=== PATIENT | male | born 1940 | race Caucasian/White ===

== ENCOUNTER 2019-03-05 06:54 | Day surgery (SDC) | payer MEDICARE, OTHER ==
[~2019-03-05 06:54] MED LIST: Lactated Ringers 1,000 ML IV SCH; Lidocaine 1%/Sod Bicarbonate in NS 8.4% 1 ML Syringe IDERM PRN; Sodium Chloride 0.9% 10 ML Syringe FLUSH PRN
--- NOTE | 2019-03-05 07:24 | PCM.PREANE ---
Preanesthetic Assessment - Procedure Proposed Procedure: egd and colonoscopy - Anesthesia/Transfusion/Family Hx Anesthesia History: Prior Anesthesia Without Reaction Family History of Anesthesia Reaction: No Transfusion History: No Prior Transfusion(s) - Review of Systems General: No Symptoms Pulmonary: Shortness of Breath (copd for 30 years), Cough Cardiovascular: No Symptoms Gastrointestinal: No Symptoms Neurological: No Symptoms Other: Reports: Easy Bleeding, Easy Bruising - Physical Assessment NPO Status Date: 03/04/19 NPO Status Time: 23:30 Pulse: 67 O2 Sat by Pulse Oximetry: 98 Respiratory Rate: 16 Blood Pressure: 161/64 Temperature: 98.5 F Height: 6 ft 1 in Weight: 63.957 kg ASA Class: 3 Mental Status: Alert & Oriented x3 Airway Class: Mallampati = 1 Dentition: Reports: Missing Tooth/Teeth Thyro-Mental Finger Breadths: 3 Mouth Opening Finger Breadths: 3 ROM/Head Extension: Full Lungs: Clear to Auscultation, Normal Respiratory Effort, Decreased Breath Sounds Cardiovascular: Regular Rate, Regular Rhythm - Allergies Allergies/Adverse Reactions: Allergies Allergy/AdvReac Type Severity Reaction Status Date / Time [id number] Reductase Allergy Leg Cramps Verified 03/04/19 14:07 Inhibitor - Blood Blood Available: No - Acknowledgements Anesthesia Type Planned: MAC Pt an Appropriate Candidate for the Planned Anesthesia: Yes Alternatives and Risks of Anesthesia Discussed w Pt/Guardian: Yes Pt/Guardian Understands and Agrees with Anesthesia Plan: Yes PreAnesthesia Questionnaire HEENT History: Reports: Impaired Vision Other HEENT History: hearing aids, glasses Cardiovascular History: Reports: CAD, High Cholesterol, Hypertension (denies), PTCA, Stents Other Cardiovascular History: chronic ischemic heart disease, valvular heart disease, mitral valve regurigation, EF of 60-65%,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 Respiratory History: Reports: COPD, SOB, Other (See Below) Other Respiratory History: chronic airway obstruction Gastrointestinal History: Reports: Colon Polyp, Diverticulosis, Hemorrhoids Genitourinary History: Reports: BPH, Prostate Disorder 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 Musculoskeletal History: Reports: Other (See Below) Other Musculoskeletal History: tendeon contracture Neurological History: Reports: None Psychiatric History: Reports: None Endocrine/Metabolic History: Reports: None Hematologic History: Reports: None Immunologic History: Reports: None Oncologic (Cancer) History: Reports: None Dermatologic History: Reports: Other (See Below) Other Dermatologic History: disorder of skin/SQ tissue, actinic keratsosis - Past Surgical History HEENT Surgical History: Reports: Adenoidectomy, Cataract Surgery, Tonsillectomy Other Cardiovascular Surgeries/Procedures: angiogram with stents 1998 Respiratory Surgical History: Reports: None GI Surgical History: Reports: Appendectomy, Colonoscopy Female Surgical History: Reports: None Male Surgical History: Reports: None Endocrine Surgical History: Reports: None Neurological Surgical History: Reports: None Other Musculoskeletal Surgeries/Procedures:: shattered knee cap with surgery, left thumb repair Oncologic Surgical History: Reports: None Dermatological Surgical History: Reports: None - SUBSTANCE USE Smoking Status *Q: Former Smoker (quit 2012) Tobacco Use Within Last Twelve Months: No Second Hand Smoke Exposure: Yes Days Per Week of Alcohol Use: 0 (rare) Recreational Drug Use History: No - HOME MEDS Home Medications: Home Meds Albuterol [Ventolin HFA] 1 puff INH BID PRN 09/04/15 [History] Albuterol/Ipratropium [Combivent Respimat] 1 puff INH QID 09/04/15 [History] Aspirin [Halfprin] 81 mg PO DAILY 09/04/15 [History] Clopidogrel [Plavix] 75 mg PO DAILY 09/04/15 [History] Ezetimibe [Zetia] 10 mg PO DAILY 09/04/15 [History] Fluticasone/Salmeterol [Advair Diskus 250-50] 1 puff INH BID 09/04/15 [History] Lisinopril [Prinivil] 20 mg PO DAILY 09/04/15 [History] Naproxen Sodium [Aleve] 220 mg PO DAILY PRN 09/04/15 [History] Simvastatin [Zocor] 40 mg PO BEDTIME 09/04/15 [History] Tamsulosin [Flomax] 0.4 mg PO DAILY 03/04/19 [History] - CURRENT (IN HOUSE) MEDS Current Meds: Current Medications Albuterol (Proventil Neb Soln) 2.5 mg NEB ONETIME ONE Stop: 03/05/19 07:51 Lactated Ringer's (Ringers, Lactated) 1,000 mls @ 125 mls/hr IV ASDIRECTED IAN Stop: 03/05/19 23:00 Lidocaine/Sodium Bicarbonate (Buffered Lidocaine 1% In Ns 8.4%) 0.25 ml IDERM ONETIME PRN PRN Reason: Prior to IV Start Stop: 03/05/19 18:00 Sodium Chloride (Saline Flush) 10 ml FLUSH ASDIRECTED PRN PRN Reason: Keep Vein Open Stop: 03/05/19 18:00
[2019-03-05] MEDS ORDERED: Lidocaine 1% 4 ML ONE (07:33)
[2019-03-05] MEDS ORDERED: fentaNYL 100 MCG/2 ML SDV ONE (07:33)
[2019-03-05] MEDS ORDERED: Propofol 200 MG/20 ML SDV ONE (07:33)
[2019-03-05] MEDS ORDERED: Albuterol 0.083% 2.5 MG/3 ML Neb Soln NEB ONE (07:50)
[2019-03-05] MEDS ORDERED: ePHEDrine/Normal Saline 25 MG/5 ML Syringe ONE (08:28)
--- NOTE | 2019-03-05 09:07 | PCM.OPNOTE ---
- General Post-Op/Procedure Note Date of Surgery/Procedure: 03/05/19 Operative Procedure(s): EGD and colonoscopy Findings: 1. Esophagitis in distal esophagus 2. Gastritis with superficial patchy and linear erosion 3. Duodenitis 4. Cecal polyps x2 5. Transverse colon polyp 6. Diverticulosis Pre Op Diagnosis: Anemia and history of colon polyps Post-Op Diagnosis: same Anesthesia Technique: MAC Primary Surgeon: Ebony Romo Anesthesia Provider: Preet Dunbar Pathology: 1. Duodenal biopsy 2. Gastric antrum for H. pylori 3. Distal esophagus Biopsy 4. Cecal polyp 5. Large sessile cecal polyp 6. Transverse colon polyp Fluid Replacement, Intraop: 700 Output, Urine Amount: 0 EBL in mLs: 0 Complications: None apparent Condition: Good
--- NOTE | 2019-03-05 09:13 | PCM48HPAN ---
Post Anesthesia Note - EVALUATION WITHIN 48HRS OF ANESTHETIC Vital Signs in Normal Range: Yes Patient Participated in Evaluation: Yes Respiratory Function Stable: Yes Airway Patent: Yes Cardiovascular Function Stable: Yes Hydration Status Stable: Yes Pain Control Satisfactory: Yes Nausea and Vomiting Control Satisfactory: Yes Mental Status Recovered: Yes Pulse Rate: 65 SaO2: 94 Resp Rate: 16 Temperature: 97.6 F Blood Pressure: 128/55
--- NOTE | 2019-03-05 09:14 | PCM.PRNOTE ---
- Free Text/Narrative Note: Operative Report Date of Procedure: March 05, 2019 Pre Op Diagnosis: Anemia and history of colon polyps Post-Op Diagnosis: Same Operative Procedures: 1. EGD with biopsy 2. Colonoscopy to the cecum Primary Surgeon: Ebony Romo MD Anesthesia Provider: Preet Dunbar CRNA Anesthesia Technique: MAC IV Fluid Replacement, Intraop: 700cc crystalloid Output, Urine Amount: 0cc EBL in mLs: 0cc Findings: 1. Esophagitis in distal esophagus 2. Gastritis with superficial patchy and linear erosion 3. Duodenitis 4. Cecal polyps x2 5. Transverse colon polyp 6. Diverticulosis Specimens: 1. Duodenal biopsy 2. Gastric antrum for H. pylori 3. Distal esophagus Biopsy 4. Cecal polyp 5. Large sessile cecal polyp 6. Transverse colon polyp Drain/Tubes: None Indication: The patient is a 78-year-old gentleman who presented to the clinic with laboratory findings of anemia. The patient does have a history of colon polyps from a colonoscopy in the past, but was not due for a surveillance colonoscopy yet at this interval. He wished to proceed with diagnostic evaluation for the anemia. The patient was consented for a diagnostic EGD and colonoscopy. Risks of bleeding, and perforation were discussed, and the patient agreed to the risks and wished to proceed. Description of the procedure: The patient was taken back to the endoscopy suite, and placed in the left lateral decubitus position. Local anesthetic to the oropharynx was administered , and a bite block was placed. The patient was sedated with MAC anesthesia. The Olympus video endoscope was inserted into the oropharynx and guided under direct vision into the esophagus, stomach, and duodenum. There was duodenitis identified in the bulb of the duodenum. Cold biopsy forceps were used to take a tissue sample for pathology. The gastric antrum was inspected and cold biopsy forceps were used to take tissue samples for H. pylori and pathology. The scope was withdrawn to the stomach and retroflexed. There were multiple areas of patchy erythema and linear erythema with superficial erosion noted in the body of the stomach and antrum. The scope was withdrawn to the esophagus. A this point we did not see any hiatal hernia. The Z-line and gastroesophageal junction were located at about 41 cm. No Barretts esophagus changes were noted. There was esophagitis with linear erosions noted in the distal esophagus. Biopsies were taken for pathology using cold biopsy forceps The endoscope was then withdrawn Next, anorectal examination was performed. No lesions, masses or hemorrhoids were noted externally or on palpation. The scope was placed into the rectum and advanced to cecum. Upon reaching the cecum, and the patients cecum was entered. There was . Minimal tortuosity of the colon. The ileocecal valve was well visualized and the appendiceal orifice identified. There was a 2 mm sessile polyp found in the cecum. This is removed using cold biopsy forceps. An additional 8-9 mm sessile polyp was seen in the cecum. This was removed in a piecemeal fashion using jumbo biopsy forceps. At this point, the scope was slowly withdrawn, paying attention to the mucosa. The patient had good bowel prep, 85-90 % of the mucosa was visible. . A transverse colon polyp was noted, measuring approximately 3 mm and semi-sessile. This was removed using jumbo cold biopsy forceps. There were a few diverticula scattered in the descending and sigmoid colon without evidence of inflammation. In the rectum, scope was retroflexed and some hemorrhoidal tissue was noted. The scope was placed back in the lumen and excess air was aspirated. The scope was removed. The patient tolerated the procedure very well. Complications: None apparent Condition: The patient was transported to PACU in stable condition. Ebony Romo MD General Surgery
[2019-03-05 09:57] VITALS: BP 135/47
== END 2019-03-05 09:51 | disposition home or self-care (01) ==
LOC: JD.SDS 06:54
PROVIDERS: ATTEND Surgery
DX: D12.0 Benign neoplasm of cecum (principal); D12.3 Benign neoplasm of transverse colon; K63.5 Polyp of colon; K57.30 Diverticulosis of large intestine without perforation or abscess without bleeding; K64.8 Other hemorrhoids; K63.89 Other specified diseases of intestine; K29.80 Duodenitis without bleeding; K22.10 Ulcer of esophagus without bleeding; K29.70 Gastritis, unspecified, without bleeding; K25.9 Gastric ulcer, unspecified as acute or chronic, without hemorrhage or perforation; K31.89 Other diseases of stomach and duodenum; D64.9 Anemia, unspecified; I25.10 Atherosclerotic heart disease of native coronary artery without angina pectoris; I10 Essential (primary) hypertension; I25.9 Chronic ischemic heart disease, unspecified; E78.2 Mixed hyperlipidemia; J44.9 Chronic obstructive pulmonary disease, unspecified; Z88.8 Allergy status to other drugs, medicaments and biological substances; Z95.5 Presence of coronary angioplasty implant and graft; Z87.891 Personal history of nicotine dependence; Z86.010 Personal history of colon polyps; Z79.82 Long term (current) use of aspirin; Z79.02 Long term (current) use of antithrombotics/antiplatelets; Z79.51 Long term (current) use of inhaled steroids; Z79.899 Other long term (current) drug therapy
CPT/HCPCS: 43239; 45380; 94640; J2001; J2704; J3010; J7050; J7120; 00813

== ENCOUNTER 2020-08-21 10:22 | Day surgery (SDC) | payer MEDICARE, OTHER ==
[~2020-08-21 10:22] MED LIST changes: +FLU Vacc QV2020-21(65YR UP)/PF 240 MCG/0.7 ML Syringe IM ONE; -Lactated Ringers 1,000 ML IV SCH
[2020-08-21] MEDS: Lactated Ringers 1,000 ML IV SCH ×2 (10:40→14:57)
--- NOTE | 2020-08-21 10:49 | PCM.PREANE ---
Preanesthetic Assessment - Procedure Proposed Procedure: egd and colonoscopy - Anesthesia/Transfusion/Family Hx Anesthesia History: Prior Anesthesia Without Reaction Family History of Anesthesia Reaction: No Transfusion History: No Prior Transfusion(s) - Review of Systems General: No Symptoms Pulmonary: Cough (copd) Cardiovascular: Dyspnea on Exertion Gastrointestinal: No Symptoms Neurological: No Symptoms Other: Reports: None - Physical Assessment NPO Status Date: 08/20/20 NPO Status Time: 20:30 (pills this am with sip) Vital Signs: 159/68 43 99% 97.0 16 Height: 6 ft 2 in Weight: 62.5 kg ASA Class: 3 Mental Status: Alert & Oriented x3 Dentition: Reports: Normal Dentition Thyro-Mental Finger Breadths: 3 Mouth Opening Finger Breadths: 3 ROM/Head Extension: Full Lungs: Clear to Auscultation, Normal Respiratory Effort Cardiovascular: Regular Rate, Regular Rhythm - Allergies Allergies/Adverse Reactions: Allergies Allergy/AdvReac Type Severity Reaction Status Date / Time [id number]-[id number]-Xfa Reductase Allergy Leg Cramps Verified 08/18/20 12:19 Inhibitor - Blood Blood Available: No - Acknowledgements Anesthesia Type Planned: MAC Pt an Appropriate Candidate for the Planned Anesthesia: Yes Alternatives and Risks of Anesthesia Discussed w Pt/Guardian: Yes Pt/Guardian Understands and Agrees with Anesthesia Plan: Yes PreAnesthesia Questionnaire HEENT History: Reports: Impaired Vision Other HEENT History: hearing aids, glasses Cardiovascular History: Reports: CAD, High Cholesterol, Hypertension (denies), PTCA, Stents Other Cardiovascular History: chronic ischemic heart disease, valvular heart disease, mitral valve regurigation, EF of 60-65%,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 Respiratory History: Reports: COPD, SOB, Other (See Below) Other Respiratory History: chronic airway obstruction Gastrointestinal History: Reports: Colon Polyp, Diverticulosis, GERD, Hemorrhoids Genitourinary History: Reports: BPH, Prostate Disorder 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 Musculoskeletal History: Reports: Other (See Below) Other Musculoskeletal History: tendeon contracture Neurological History: Reports: None Psychiatric History: Reports: None Endocrine/Metabolic History: Reports: None Hematologic History: Reports: None, Other (See Below) (anemia) Immunologic History: Reports: None Oncologic (Cancer) History: Reports: None Dermatologic History: Reports: Other (See Below) Other Dermatologic History: disorder of skin/SQ tissue, actinic keratsosis - Past Surgical History HEENT Surgical History: Reports: Adenoidectomy, Cataract Surgery, Tonsillectomy Other Cardiovascular Surgeries/Procedures: angiogram with stents 1998 Respiratory Surgical History: Reports: None GI Surgical History: Reports: Appendectomy, Colonoscopy Female Surgical History: Reports: None Male Surgical History: Reports: None Endocrine Surgical History: Reports: None Neurological Surgical History: Reports: None Other Musculoskeletal Surgeries/Procedures:: shattered knee cap with surgery, left thumb repair Oncologic Surgical History: Reports: None Dermatological Surgical History: Reports: None - SUBSTANCE USE Smoking Status *Q: Former Smoker (quit 30 years ago) Tobacco Use Within Last Twelve Months: No Second Hand Smoke Exposure: Yes Days Per Week of Alcohol Use: 0 Recreational Drug Use History: No - HOME MEDS Home Medications: Home Meds Albuterol [Ventolin HFA] 1 puff INH BID PRN 09/04/15 [History] Albuterol/Ipratropium [Combivent Respimat] 1 puff INH QID 09/04/15 [History] Aspirin [Halfprin] 81 mg PO DAILY 09/04/15 [History] Clopidogrel [Plavix] 75 mg PO DAILY 09/04/15 [History] Ezetimibe [Zetia] 10 mg PO DAILY 09/04/15 [History] Fluticasone/Salmeterol [Advair Diskus 250-50] 1 puff INH BID 09/04/15 [History] Lisinopril [Prinivil] 20 mg PO DAILY 09/04/15 [History] Simvastatin [Zocor] 40 mg PO BEDTIME 09/04/15 [History] Tamsulosin [Flomax] 0.4 mg PO DAILY 03/04/19 [History] Famotidine [Pepcid] 20 mg PO BID 08/18/20 [History] Fluticasone Propionate [Flonase] 1 dose NASBOTH BID 08/18/20 [History] Iron Ag,Ps/C/Fa6/B12/Zn/SA/Sto [Niferex Tablet] 1 tab PO DAILY 08/18/20 [History] Pantoprazole Sodium [Protonix] 40 mg PO DAILY 08/18/20 [History] - CURRENT (IN HOUSE) MEDS Current Meds: Current Medications Lactated Ringer's (Ringers, Lactated) 1,000 mls @ 125 mls/hr IV ASDIRECTED IAN Stop: 08/21/20 23:00 Lidocaine/Sodium Bicarbonate (Buffered Lidocaine 1% In Ns 8.4%) 0.25 ml IDERM ONETIME PRN PRN Reason: Prior to IV Start Stop: 08/21/20 18:00 Sodium Chloride (Saline Flush) 10 ml FLUSH ASDIRECTED PRN PRN Reason: Keep Vein Open Stop: 08/21/20 18:00 Discontinued Medications Influenza Virus Vaccine (Fluzone High-Dose Quad ) 240 mcg IM .ONCE ONE Stop: 08/21/20 06:01
[2020-08-21] MEDS ORDERED: Albuterol 0.083% 2.5 MG/3 ML Neb Soln NEB ONE (10:50)
[2020-08-21] MEDS ORDERED: Propofol 200 MG/20 ML SDV ONE ×2 (11:16→12:46)
[2020-08-21] MEDS ORDERED: Lidocaine 1% 4 ML ONE (11:16)
[2020-08-21] MEDS ORDERED: Lactated Ringers 1,000 ML ONE (12:48)
[2020-08-21 13:44] VITALS: BP 134/52; PULSE 50
--- NOTE | 2020-08-21 14:02 | PCM48HPAN ---
Post Anesthesia Note - EVALUATION WITHIN 48HRS OF ANESTHETIC Vital Signs in Normal Range: Yes Patient Participated in Evaluation: Yes Respiratory Function Stable: Yes Airway Patent: Yes Cardiovascular Function Stable: Yes Hydration Status Stable: Yes Pain Control Satisfactory: Yes Nausea and Vomiting Control Satisfactory: Yes Mental Status Recovered: Yes Vital Signs: Last Vital Signs Temp 36.4 C 08/21/20 13:14 Pulse 50 L 08/21/20 13:43 Resp 16 08/21/20 13:43 BP 134/52 L 08/21/20 13:43 Pulse Ox 99 08/21/20 13:43
--- NOTE | 2020-08-21 14:21 | PROC ---
DATE OF OPERATION: 08/21/2020 SURGEON: Tony Arroyo MD PREOPERATIVE DIAGNOSIS: Anemia. POSTOPERATIVE DIAGNOSIS: Anemia. PROCEDURES: 1. Esophagogastroduodenoscopy. 2. Colonoscopy. ESTIMATED BLOOD LOSS: Minimal. ANESTHESIA: Monitored anesthesia care. COMPLICATION: None. INDICATIONS AND CONSENT: Mr. Diana is an 80-year-old male, who has iron-deficiency anemia that was recognized last year. The patient underwent EGD, colonoscopy at that time. Gastritis and duodenitis were noted as well as colonic polyps. The patient was treated with transfusions and PPIs, improved, but then the anemia has recurred, came to me for evaluation. I discussed with him. I recommended repeat EGD and colonoscopy to diagnose. We discussed risks, benefits, and alternatives, and informed consent was obtained. DESCRIPTION OF PROCEDURE: The patient was taken to the procedure room, placed in left lateral decubitus position, and then time-out was performed and monitored anesthesia care was induced. Began with the EGD. Scope was inserted into the mouth and taken all the way to the second portion of duodenum. There was a small area of superficial ulceration in the first portion of duodenum. This was a small area. Photographs were taken and biopsies were taken with cold forceps. The bulb, otherwise, and second portion of duodenum were normal. The antrum had mild gastritis. Biopsies were taken here again for pathologic examination. The rest of the body of the stomach as well as the cardia were normal. On retroflexion, there was no hiatal hernia. The rest of the esophagus was also normal. At this point, the stomach was suctioned of any blood and the scope was removed. Next, we proceeded with colonoscopy. Perianal exam and digital rectal exams were normal. Scope was inserted and the prep was good. The exam was challenging due to significant looping, requiring abdominal pressure. Then, the scope was advanced all the way to the cecum into the terminal ileum. Terminal ileum, cecal valve, as well as appendiceal orifice were photographed. Then, the colon was examined all the way to the rectum. There was no polyps or other sources of bleeding. On retroflexion, the rectum was normal. At this point, air was suctioned out from the colon and the exam was concluded. In short, this exam revealed a small superficial ulceration in the first part of the duodenum, minimal gastritis. This too may be causing very minimal bleeding, especially in the context of dual anti-platelet therapy. However, there was no finding that explain major bleeding in this patient. I recommend the patient follow up with Dr. Hidalgo for further management. The patient should continue to abstain from lifestyle factors that contribute to gastritis. The patient should also continue with PPIs for at least another 3 months. These recommendations were discussed with the patient's . RUTH /[id number] ANAND
--- NOTE | 2020-08-24 16:50 | PCM.SN.2 ---
- Free Text/Narrative Note: This is an Addendum to the Procedure Note done on 08/21/2020 There were numerous whitish patches in the mid to distal esophagus therefore a mid esophageal biopsy was takes with cold forceps.
== END 2020-08-21 14:20 | disposition home or self-care (01) ==
LOC: JD.SDS 10:22
PROVIDERS: ATTEND Surgery
DX: D50.9 Iron deficiency anemia, unspecified (principal); K29.50 Unspecified chronic gastritis without bleeding; K26.9 Duodenal ulcer, unspecified as acute or chronic, without hemorrhage or perforation; K22.8 Other specified diseases of esophagus; I10 Essential (primary) hypertension; E78.00 Pure hypercholesterolemia, unspecified; Z23 Encounter for immunization; K21.9 Gastro-esophageal reflux disease without esophagitis; J44.9 Chronic obstructive pulmonary disease, unspecified; Z98.890 Other specified postprocedural states; Z79.899 Other long term (current) drug therapy; Z87.891 Personal history of nicotine dependence; Z88.8 Allergy status to other drugs, medicaments and biological substances
CPT/HCPCS: 00813; 90662; G0008; J2001; J2704; J7120

== ENCOUNTER 2020-12-29 10:02 | Emergency (ER) | payer MEDICARE, OTHER ==
[2020-12-29 10:13] VITALS: BP 155/72; PULSE 50
--- NOTE | 2020-12-29 10:35 | EDM.PDOC ---
ED HPI GENERAL MEDICAL PROBLEM - General Chief Complaint: Cardiovascular Problem Stated Complaint: HIGH BP/LOW HEART RATE Time Seen by Provider: 12/29/20 10:07 Source of Information: Reports: Patient, Family History Limitations: Reports: No Limitations - History of Present Illness INITIAL COMMENTS - FREE TEXT/NARRATIVE: The patient presents with hypertension and bradycardia. He had a 4 vessel CABG in October and he is doing cardiac rehab. He went today and they noticed his heart rate was low in the 30s and his BP was high. He was 182 systolic. He has no chest pain or shortness of breath. He has no fever, chills, cough, congestion or runny nose. He has no abdominal pain, nausea or vomiting. His service engineer is Dr Nicole at [facility] in [place]. He says the low heart rate is normal for him. He is usually in the 30s and 40s. His BP is also elevated at times and when he settle down it goes down. Onset: Gradual Severity: Mild Improves with: Reports: None Worsens with: Reports: None Associated Symptoms: Reports: No Other Symptoms - Related Data Allergies Allergy/AdvReac Type Severity Reaction Status Date / Time Pelwzlb-Xvy-Rwh Reductase AdvReac Mild Leg Cramps Verified 12/29/20 10:13 Inhibitor Home Meds: Home Meds Albuterol [Ventolin HFA] 1 puff INH BID PRN 09/04/15 [History] Aspirin [Halfprin] 81 mg PO DAILY 09/04/15 [History] Lisinopril [Prinivil] 20 mg PO DAILY 09/04/15 [History] Simvastatin [Zocor] 40 mg PO BEDTIME 09/04/15 [History] Famotidine [Pepcid] 20 mg PO BID 08/18/20 [History] Pantoprazole Sodium [Protonix] 40 mg PO DAILY 08/18/20 [History] Amiodarone [Cordarone] 200 mg PO DAILY 12/29/20 [History] Ezetimibe [Zetia] 10 mg PO DAILY 12/29/20 [History] Finasteride 5 mg PO DAILY 12/29/20 [History] Fluticasone Propion/Salmeterol [Advair 250-50 Diskus] 2 puff INH BID 12/29/20 [History] Past Medical History HEENT History: Reports: Impaired Vision Other HEENT History: hearing aids, glasses Cardiovascular History: Reports: CAD, High Cholesterol, Hypertension, PTCA, Stents Other Cardiovascular History: chronic ischemic heart disease, valvular heart disease, mitral valve regurigation, EF of 60-65%,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 Respiratory History: Reports: COPD, SOB, Other (See Below) Other Respiratory History: chronic airway obstruction Gastrointestinal History: Reports: Colon Polyp, Diverticulosis, GERD, Hemorrhoids Genitourinary History: Reports: BPH, Prostate Disorder COMMUNICATIONS SCIENTIST History: Reports: None Musculoskeletal History: Reports: Other (See Below) Other Musculoskeletal History: tendeon contracture Neurological History: Reports: None Psychiatric History: Reports: None Endocrine/Metabolic History: Reports: None Hematologic History: Reports: None, Other (See Below) Immunologic History: Reports: None Oncologic (Cancer) History: Reports: None Dermatologic History: Reports: Other (See Below) Other Dermatologic History: disorder of skin/SQ tissue, actinic keratsosis - Past Surgical History HEENT Surgical History: Reports: Adenoidectomy, Cataract Surgery, Tonsillectomy Other Cardiovascular Surgeries/Procedures: angiogram with stents 1998 Respiratory Surgical History: Reports: None GI Surgical History: Reports: Appendectomy, Colonoscopy Male Surgical History: Reports: None Endocrine Surgical History: Reports: None Neurological Surgical History: Reports: None Other Musculoskeletal Surgeries/Procedures:: shattered knee cap with surgery, left thumb repair Oncologic Surgical History: Reports: None Dermatological Surgical History: Reports: None Social & Family History - Tobacco Use Tobacco Use Status *Q: Never Tobacco User - Caffeine Use Caffeine Use: Reports: Coffee - Recreational Drug Use Recreational Drug Use: No ED ROS GENERAL - Review of Systems Review Of Systems: See Below Constitutional: Reports: No Symptoms HEENT: Reports: No Symptoms Respiratory: Reports: No Symptoms Cardiovascular: Reports: No Symptoms Endocrine: Reports: No Symptoms GI/Abdominal: Reports: No Symptoms : Reports: No Symptoms Musculoskeletal: Reports: No Symptoms Skin: Reports: No Symptoms Neurological: Reports: No Symptoms ED EXAM, GENERAL - Physical Exam Exam: See Below Exam Limited By: No Limitations General Appearance: Alert, No Apparent Distress Ears: Normal External Exam Nose: Normal Inspection Head: Atraumatic, Normocephalic Neck: Normal Inspection Respiratory/Chest: No Respiratory Distress, Lungs Clear, Normal Breath Sounds Cardiovascular: No Edema, No Murmur, Bradycardia GI/Abdominal: Soft, Non-Tender, No Organomegaly, No Mass Back Exam: Normal Inspection Extremities: Normal Inspection #1 Interpretation EKG Date: 12/29/20 Time: 10:10 Rhythm: Other (sinus bradycardia) Rate (Beats/Min): 38 [place]: LAD-Left [place] Deviation P-Wave: Present QRS: Normal ST-T: Normal QT: Normal IL/PQ Interval: 1st degree HB Course - Vital Signs Last Recorded V/S: Last Vital Signs Temp 98.4 F 12/29/20 10:06 Pulse 50 L 12/29/20 10:06 Resp 15 12/29/20 10:06 BP 155/72 H 12/29/20 10:06 Pulse Ox 100 12/29/20 10:06 - Orders/Labs/Meds Orders: Active Orders 24 hr Category Date Time Status Cardiac Monitoring [RC] . DIRECTED Care 12/29/20 10:17 Active EKG Documentation Completion [RC] ASDIRECTED Care 12/29/20 10:17 Active Holter Monitor 48 Hours [RC] .PRN Care 12/29/20 11:47 Active PRO B-TYPE NATRIUR PEPT,BNPPRO [CHEM] Stat Lab 12/29/20 11:57 Ordered EKG 12 Lead [EK] Stat Ther 12/29/20 10:17 Ordered Labs: Laboratory Tests 12/29/20 12/29/20 Range/Units 10:25 10:25 WBC 3.95 L (4.23-9.07) K/mm3 RBC 3.64 L (4.63-6.08) M/mm3 Hgb 10.8 L (13.7-17.5) gm/dl Hct 37.3 L (40.1-51.0) % MCV 102.5 H (79.0-92.2) fl MCH 29.7 (25.7-32.2) pg MCHC 29.0 L (32.2-35.5) g/dl RDW Std Deviation 63.3 H (35.1-43.9) fL Plt Count 160 L (163-337) K/mm3 MPV 10.2 (9.4-12.3) fl Neut % (Auto) 70.6 H (34.0-67.9) % Lymph % (Auto) 18.7 L (21.8-53.1) % Charles % (Auto) 8.4 (5.3-12.2) % Eos % (Auto) 2.0 (0.8-7.0) Baso % (Auto) 0.3 (0.1-1.2) % Neut # (Auto) 2.79 (1.78-5.38) K/mm3 Lymph # (Auto) 0.74 L (1.32-3.57) K/mm3 Charles # (Auto) 0.33 (0.30-0.82) K/mm3 Eos # (Auto) 0.08 (0.04-0.54) K/mm3 Baso # (Auto) 0.01 (0.01-0.08) K/mm3 Manual Slide Review Abnormal smear Sodium 143 (136-145) mEq/L Potassium 4.4 (3.5-5.1) mEq/L Chloride 107 (98-107) mEq/L Carbon Dioxide 27 (21-32) mEq/L Anion Gap 13.4 (5-15) BUN 25 H (7-18) mg/dL Creatinine 1.3 (0.7-1.3) mg/dL Est Cr Clr Drug Dosing 42.89 mL/min Estimated GFR (MDRD) 53 (>60) mL/min BUN/Creatinine Ratio 19.2 H (14-18) Glucose 106 (83-115) mg/dL Calcium 8.9 (8.5-10.1) mg/dL Total Bilirubin 0.3 (0.2-1.0) mg/dL AST 20 (15-37) U/L ALT 38 (16-63) U/L Alkaline Phosphatase 72 (46-116) U/L Troponin I < 0.017 (0.00-0.056) ng/mL Total Protein 6.5 (6.4-8.2) g/dl Albumin 3.4 (3.4-5.0) g/dl Globulin 3.1 gm/dL Albumin/Globulin Ratio 1.1 (1-2) - Re-Assessments/Exams Free Text/Narrative Re-Assessment/Exam: 12/29/20 10:35 I ordered an EKG and labs. His EKG shows a sinus bradycardia with 1st degree HB at a rate of 38. There are no acute changes. His BP is better now at 146/60 systolic. 12/29/20 11:23 His WBC was low at 3.95. His Hgb was low at 10.8. His CMP looks good. His troponin is negative. 12/29/20 11:45 I called [facility] in [place] and talked with Dr Dove and he wanted a copy of the EKG. I sent that to him and he also wanted the patient on a Holter monitor. I have ordered that. Departure - Departure Time of Disposition: 12:00 Disposition: Home, Self-Care 01 Condition: Good Clinical Impression: Bradycardia Hypertension Qualifiers: Hypertension type: essential hypertension Qualified Code(s): I10 - Essential (primary) hypertension Referrals: John Hidalgo MD [Primary Care Provider] - Forms: ED Department Discharge Additional Instructions: Take your medication as prescribed. Follow up with Dr Mcgovern. Wear the holter monitor for 48 hours. Please return if you are worse. Sepsis Event Note (ED) - Evaluation Sepsis Screening Result: No Definite Risk - Focused Exam Vital Signs: Vital Signs Temp Pulse Resp BP Pulse Ox 12/29/20 10:06 98.4 F 50 L 15 155/72 H 100 - My Orders Last 24 Hours: My Active Orders 12/29/20 10:17 Cardiac Monitoring [RC] . DIRECTED EKG Documentation Completion [RC] ASDIRECTED EKG 12 Lead [EK] Stat 12/29/20 11:47 Holter Monitor 48 Hours [RC] .PRN 12/29/20 11:57 PRO B-TYPE NATRIUR PEPT,BNPPRO [CHEM] Stat - Assessment/Plan Last 24 Hours: My Active Orders 12/29/20 10:17 Cardiac Monitoring [RC] . DIRECTED EKG Documentation Completion [RC] ASDIRECTED EKG 12 Lead [EK] Stat 12/29/20 11:47 Holter Monitor 48 Hours [RC] .PRN 12/29/20 11:57 PRO B-TYPE NATRIUR PEPT,BNPPRO [CHEM] Stat
== END 2020-12-29 12:04 | disposition home or self-care (01) ==
LOC: JD.ED 10:02
DX: I10 Essential (primary) hypertension (principal); R00.1 Bradycardia, unspecified; N40.0 Benign prostatic hyperplasia without lower urinary tract symptoms; I25.10 Atherosclerotic heart disease of native coronary artery without angina pectoris; E78.00 Pure hypercholesterolemia, unspecified; J44.9 Chronic obstructive pulmonary disease, unspecified; K21.9 Gastro-esophageal reflux disease without esophagitis; Z95.5 Presence of coronary angioplasty implant and graft; Z79.82 Long term (current) use of aspirin; Z88.8 Allergy status to other drugs, medicaments and biological substances; Z79.899 Other long term (current) drug therapy
CPT/HCPCS: 36415; 80053; 83880; 84484; 85025; 93005; 93010; 93225; 93226; 99284; 99284-25

== ENCOUNTER 2020-12-30 11:57 | Emergency (ER) | payer MEDICARE, OTHER ==
[2020-12-30 12:14] VITALS: PULSE 52
--- NOTE | 2020-12-30 12:18 | EDM.PDOC ---
ED HPI GENERAL MEDICAL PROBLEM - General Chief Complaint: Chest Pain Stated Complaint: HIGH BP/200S Time Seen by Provider: 12/30/20 12:18 Source of Information: Reports: Patient History Limitations: Reports: No Limitations - History of Present Illness INITIAL COMMENTS - FREE TEXT/NARRATIVE: 80-year-old male attends the ED once again for evaluation of systolic hypertension. His blood pressure this morning was 205/78. He denies headache or pressure in his head. He sometimes will feel a thumping feeling in his chest presumably due to a premature ventricular contraction. Patient underwent quadruple bypass on an emergency basis on Friday, October 29, [address] Laboy cardiovascular surgeon at [facility] in [place]. Patient has significant valvular disease particular aortic stenosis and mitral insufficiency that they are going to address at a later date probably endovascularly. Patient was seen through the ED yesterday after having appreciable elevation of his systolic blood pressure when he reported to cardiac rehab. Patient is on amiodarone presumably for arrhythmias and he reports paroxysmal atrial fibrillation. Recently taken off all blood thinners due to upper GI bleeding. He denies any chest pain. He is short of breath on exertion. BNP yesterday was 1470. No other major electrolyte abnormalities were identified and renal function is normal. Onset: Unknown/Unsure (Is identified elevated systolic blood pressure for the last 2 weeks.) Onset Date: 12/18/20 (Appears to have labile systolic hypertension.) Duration: Week(s):, Constant, Other Location: Reports: Other (No real symptoms from labile hypertension.) Quality: Reports: Other Severity: Moderate (None) Improves with: Reports: None Worsens with: Reports: None Context: Reports: Other (Patient is recovering from open heart surgery October 29, 2020 after quadruple bypass was performed.). Denies: Activity, Exercise, Lifting, Sick Contact, Trauma Associated Symptoms: Reports: Cough (Daily cough. Has COPD), cough w sputum, Malaise, Shortness of Breath. 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: Other (see below) (No medications other than what he has been prescribed.) Left Upper Chest Pain Score (Numeric/FACES): 1 - Related Data Allergies Allergy/AdvReac Type Severity Reaction Status Date / Time Tmuojso-Udz-Fsd Reductase AdvReac Mild Leg Cramps Verified 12/30/20 12:14 Inhibitor Home Meds: Home Meds Albuterol [Ventolin HFA] 1 puff INH BID PRN 09/04/15 [History] Aspirin [Halfprin] 81 mg PO DAILY 09/04/15 [History] Lisinopril [Prinivil] 20 mg PO DAILY 09/04/15 [History] Simvastatin [Zocor] 40 mg PO BEDTIME 09/04/15 [History] Famotidine [Pepcid] 20 mg PO BID 08/18/20 [History] Pantoprazole Sodium [Protonix] 40 mg PO DAILY 08/18/20 [History] Amiodarone [Cordarone] 200 mg PO DAILY 12/29/20 [History] Ezetimibe [Zetia] 10 mg PO DAILY 12/29/20 [History] Finasteride 5 mg PO DAILY 12/29/20 [History] Fluticasone Propion/Salmeterol [Advair 250-50 Diskus] 2 puff INH BID 12/29/20 [History] amLODIPine Besylate [Norvasc] 5 mg PO DAILY #30 tablet 12/30/20 [Rx] Past Medical History HEENT History: Reports: Impaired Vision Other HEENT History: hearing aids, glasses Cardiovascular History: Reports: CAD, High Cholesterol (Associated hypertriglyceridemia.), Hypertension, PTCA, Stents Other Cardiovascular History: chronic ischemic heart disease, valvular heart disease, mitral valve regurigation, EF of 60-65%,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 Respiratory History: Reports: COPD, SOB, Other (See Below) Other Respiratory History: chronic airway obstruction Gastrointestinal History: Reports: Colon Polyp, Diverticulosis, GERD, Hemorrh oids Genitourinary History: Reports: BPH, Prostate Disorder EQUIPMENT ASSOCIATE History: Reports: None Musculoskeletal History: Reports: Other (See Below) Other Musculoskeletal History: tendeon contracture Neurological History: Reports: None Psychiatric History: Reports: None Endocrine/Metabolic History: Reports: None Hematologic History: Reports: None, Other (See Below) Immunologic History: Reports: None Oncologic (Cancer) History: Reports: None Dermatologic History: Reports: Other (See Below) Other Dermatologic History: disorder of skin/SQ tissue, actinic keratsosis - Past Surgical History HEENT Surgical History: Reports: Adenoidectomy, Cataract Surgery, Tonsillectomy Other Cardiovascular Surgeries/Procedures: angiogram with stents 1998 Respiratory Surgical History: Reports: None GI Surgical History: Reports: Appendectomy, Colonoscopy Male Surgical History: Reports: None Endocrine Surgical History: Reports: None Neurological Surgical History: Reports: None Other Musculoskeletal Surgeries/Procedures:: shattered knee cap with surgery, left thumb repair Oncologic Surgical History: Reports: None Dermatological Surgical History: Reports: None Social & Family History - Caffeine Use Caffeine Use: Reports: Coffee - Living Situation & Occupation Living situation: Reports: Occupation: Retired ED ROS GENERAL - Review of Systems Review Of Systems: See Below Constitutional: Denies: Fever, Chills, Malaise, Weight Loss HEENT: Reports: Glasses, Hearing Loss Respiratory: Reports: Shortness of Breath, Cough, Other (Known COPD). Denies: Wheezing, Pleuritic Chest Pain Cardiovascular: Reports: Blood Pressure Problem, Dyspnea on Exertion, Lightheadedness, Palpitations (Conically rarely is aware of palpitations more of a thump against his chest wall presumably due to a PVC with compensatory pause.). Denies: Claudication (Labile systolic hypertension identified over the last several weeks.), Edema (Rarely.), Orthopnea Endocrine: Reports: Fatigue GI/Abdominal: Reports: Constipation (Rare problems with constipation.) : Reports: Frequency, Other (Nocturia x2) Musculoskeletal: Reports: Neck Pain, Shoulder Pain, Back Pain, Joint Pain (He is and hips at times) Skin: Reports: Bruising (Bruises fairly easily even though he is off Eliquis.) Neurological: Reports: No Symptoms Psychiatric: Reports: No Symptoms Hematologic/Lymphatic: Reports: No Symptoms Immunologic: Reports: No Symptoms ED EXAM, GENERAL - Physical Exam Exam: See Below Exam Limited By: No Limitations General Appearance: Alert, WD/WN, No Apparent Distress, Anxious (Been anxious.), Other (Temperature is 36.1 heart rate was 52 but the monitor shows he dips as low as 36 at times and stays primarily in the 40s. He is on a Holter monitor that was placed yesterday at the request of his nitrate operator. Respiratory was 16 with O2 sats 100% room air BP 195/72.) Eye Exam: Bilateral Eye: Normal Inspection, PERRL Throat/Mouth: Normal Inspection, Normal Lips, Normal Oropharynx Head: Atraumatic, Normocephalic Neck: Normal Inspection, Supple, Limited Range of Motion (It is on lateral flexion and rotation), Tender Lateral ( in the cervical spine. Mild bilaterally.). No: Lymphadenopathy (L), Lymphadenopathy (R) Respiratory/Chest: No Respiratory Distress, Lungs Clear, Decreased Breath Sounds, Other (Patient has increased AP diameter of his thorax compared with chronic COPD). No: Rales, Rhonchi, Wheezing (Decreased breath sounds over 20% of lung roach bilaterally.) Cardiovascular: No Gallop, No Rub, Bradycardia (Primarily in the 40s around 44 and average.), Systolic Murmur (A pansystolic or holosystolic murmur best heard at the left lower sternal border that travels towards the left axilla compatible with mitral insufficiency murmur. I also believe there is aortic stenosis murmur.), Other (Midline sternotomy incision healing adequately.). No: Normal Peripheral Pulses Peripheral Pulses: 1+: Posterior Tibial (L), Posterior Tibial (R), Dorsalis Pedis (L), Dorsalis Pedis (R), 2+: Carotid (L), Carotid (R) GI/Abdominal: Normal Bowel Sounds, Soft, Non-Tender, No Organomegaly, No Mass, Pelvis Stable, Rebound Back Exam: Normal Inspection, Decreased Range of Motion. No: Full Range of Motion, CVA Tenderness (L), CVA Tenderness (R) Extremities: Normal Inspection, Non-Tender, No Pedal Edema Neurological: Alert, Oriented, CN II-XII Intact, Normal Cognition Psychiatric: Normal Affect, Normal Mood Skin Exam: Warm, Dry, Intact, Normal Color, No Rash #1 Interpretation EKG Date: 12/30/20 Time: 12:13 Rhythm: Other Rate (Beats/Min): 39 (Occasional PACs) [place]: LAD-Left [place] Deviation (-56 degrees with incomplete left bundle branch block pattern) QRS: Normal ST-T: Other (T wave flattening in lead I and lead aVL lead V6 nonspecific) QT: Normal EKG Interpretation Comments: Abnormal ECG Course - Vital Signs Last Recorded V/S: Last Vital Signs Temp 36.1 C 12/30/20 12:07 Pulse 52 L 12/30/20 12:07 Resp 16 12/30/20 12:07 BP 195/72 H 12/30/20 12:07 Pulse Ox 100 12/30/20 12:07 - Orders/Labs/Meds Meds: Medications Discontinued Medications Generic Name Dose Route Start Last Admin Trade Name Aurelio PRN Reason Stop Dose Admin Amlodipine Besylate 5 mg 12/30/20 12:44 Norvasc PO 12/30/20 12:45 ONETIME ONE - Radiology Interpretation Free Text/Narrative:: 80-year-old male presents to the ED due to persistently elevated systolic blood pressure. It is been over 200 at home and initial one here was 195/72. The diastolics is always been in the 68-78 range. Patient has been running a sinus bradycardia but on average around 44 bpm. He was seen through the ED yesterday and I reviewed the labs done by Dr. Posey and there were no major abnormalities other than slightly elevated BNP at 1470. Patient had quadruple bypass carried out on an emergent basis on a Friday at [facility] in [place] in October 2020. He had had previous stents placed 12 years ago which became occluded. He required quadruple bypass. Patient has known aortic stenosis and mitral regurgitation murmurs. He gets occasionally lightheaded and dizzy. He has never fallen or had a syncopal event. Plan I am going to place the patient on amlodipine or Norvasc 5 mg once daily at bedtime to control labile systolic hypertension. He will be following up with his nitrate operator in the near future. Departure - Departure Time of Disposition: 12:44 Disposition: Home, Self-Care 01 Reason for Transfer *Q: Other Condition: Fair Clinical Impression: Systolic essential hypertension Prescriptions: amLODIPine Besylate [Norvasc] 5 mg PO DAILY #30 tablet Instructions: Hypertension, Adult, [id number] Referrals: John Hidalgo MD [Primary Care Provider] - Forms: ED Department Discharge Additional Instructions: Evaluation in the emergency room today in regards to marked lability of the upper blood pressure number calls systolic hypertension. Lability means that he goes up and down quite quickly at times well over 200 as you have identified at home. Initial blood pressure here was 195/72. The bottom number is always been under 85 which is excellent. I have reviewed your labs that were done yesterday and ECG does show your heart rate is in the 30s to mid 40s. You are already wearing a Holter monitor to have this fully assessed. You have underlying valvular heart disease that is going to be looked at as well when she recovered from open heart surgery. Treatment today should be new medication called Norvasc or amlodipine 5 mg tablet once daily at bedtime which will help control the blood pressure from jumping up and down so much on the top number. You did receive first dose in the emergency room today but I suggest a second dose today at bedtime as well. Then take 1 every night at bedtime. Take all other medications as previously prescribed expect improvement over the next 2 to 3 days. Follow-up with personal care physician as planned or cardiovascular surgeon as planned. Sepsis Event Note (ED) - Evaluation Sepsis Screening Result: No Definite Risk - Focused Exam Vital Signs: Vital Signs Temp Pulse Resp BP Pulse Ox 12/30/20 12:07 36.1 C 52 L 16 195/72 H 100
[2020-12-30] MEDS ORDERED: amLODIPine 5 MG Tab PO ONE (12:44)
[2020-12-30 12:55] VITALS: BP 144/50
== END 2020-12-30 12:58 | disposition home or self-care (01) ==
LOC: JD.ED 11:57
DX: I10 Essential (primary) hypertension (principal); I25.10 Atherosclerotic heart disease of native coronary artery without angina pectoris; E78.00 Pure hypercholesterolemia, unspecified; J44.9 Chronic obstructive pulmonary disease, unspecified; K21.9 Gastro-esophageal reflux disease without esophagitis; N40.0 Benign prostatic hyperplasia without lower urinary tract symptoms; Z79.82 Long term (current) use of aspirin; Z79.899 Other long term (current) drug therapy; Z88.8 Allergy status to other drugs, medicaments and biological substances; Z95.5 Presence of coronary angioplasty implant and graft
CPT/HCPCS: 99283; A9270; 93010; 99284

== ENCOUNTER 2023-02-12 07:21 | Day surgery (SDC) | payer MEDICARE, OTHER ==
[~2023-02-12 07:21] MED LIST changes: -FLU Vacc QV2020-21(65YR UP)/PF 240 MCG/0.7 ML Syringe IM ONE; +Lactated Ringers 1,000 ML IV SCH; +Sodium Chloride 0.9% 10 ML Syringe FLUSH SCH
[2023-02-12] MEDS ORDERED: Lactated Ringers 1,000 ML ONE ×3 (08:47→09:42)
[2023-02-12] MEDS ORDERED: Lidocaine 1% 4 ML ONE (08:47)
[2023-02-12] MEDS ORDERED: Propofol 200 MG/20 ML SDV ONE (08:47)
[2023-02-12] MEDS ORDERED: ePHEDrine 50 MG/ML SDV ONE (09:15)
[2023-02-12] MEDS ORDERED: Atropine 0.4 MG/ML SDV ONE (09:39)
[2023-02-12] MEDS ORDERED: Lactated Ringers 0 ML ONE (09:41)
[2023-02-12 10:54] VITALS: BP 121/78; PULSE 72
== END 2023-02-12 10:40 | disposition home or self-care (01) ==
LOC: JD.SDS 07:21
PROVIDERS: ATTEND Surgery
DX: K29.50 Unspecified chronic gastritis without bleeding (principal); K63.5 Polyp of colon; K29.80 Duodenitis without bleeding; K21.9 Gastro-esophageal reflux disease without esophagitis; K57.30 Diverticulosis of large intestine without perforation or abscess without bleeding; N40.0 Benign prostatic hyperplasia without lower urinary tract symptoms; D50.0 Iron deficiency anemia secondary to blood loss (chronic); I25.10 Atherosclerotic heart disease of native coronary artery without angina pectoris; I48.0 Paroxysmal atrial fibrillation; E78.00 Pure hypercholesterolemia, unspecified; I44.0 Atrioventricular block, first degree; Z95.0 Presence of cardiac pacemaker; Z95.1 Presence of aortocoronary bypass graft; Z98.890 Other specified postprocedural states; Z79.899 Other long term (current) drug therapy; Z79.82 Long term (current) use of aspirin; Z87.891 Personal history of nicotine dependence; Z91.048 Other nonmedicinal substance allergy status
CPT/HCPCS: 43239; 45380; J0461; J2704; J7120; 00813; 88305; J3490

== ENCOUNTER 2023-11-12 14:42 | Emergency (ER) | payer MEDICARE, OTHER ==
[2023-11-12] MEDS ORDERED: Sodium Chloride 0.9% 10 ML Syringe FLUSH PRN (15:05)
[2023-11-12 15:35] LABS: BASOPHILS PERCENT AUTO 0.2 % (0.0-1.0); EOSINOPHILS PERCENT AUTO 0.9 % (0.0-6.0); HEMATOCRIT 40.4 % (42.0-52.0); HEMOGLOBIN 13.2 gm/dl (14.0-18.0); IMMATURE GRAN ABSOLUTE AUTO 0.01 K/mm3 (0.00-0.05); IMMATURE GRAN PERCENT AUTO 0.2 % (0.0-0.4); LYMPHOCYTES ABSOLUTE AUTO 0.3 K/mm3 (1.0-4.8); LYMPHOCYTES PERCENT AUTO 7.5 % (24.0-44.0); MEAN CORPUSCULAR HEMOGLOBIN 31.4 pg (28.0-32.0); MEAN CORPUSCULAR HGB CONC 32.7 g/dl (32.0-36.0); MEAN CORPUSCULAR VOLUME 96.2 fl (83.0-99.0); MEAN PLATELET VOLUME 9.8 fl (9.4-12.4); MONOCYTES ABSOLUTE AUTO 0.3 K/mm3 (0.0-0.8); MONOCYTES PERCENT AUTO 6.4 % (0.0-8.0); NEUTROPHILS ABSOLUTE AUTO 3.8 K/mm3 (1.8-7.7); NEUTROPHILS PERCENT AUTO 84.8 % (41.0-71.0); PLATELET COUNT,PLT 96 K/mm3 (150-400); WHITE BLOOD CELL COUNT,WBC 4.52 K/mm3 (3.9-11.3)
[2023-11-12 15:54] LABS: ALBUMIN 3.3 g/dl (3.4-5.0); ANION GAP 12.1 (5-15); BILIRUBIN TOTAL 0.7 mg/dL (0.2-1.0); CALCIUM 8.9 mg/dL (8.5-10.1); CREATININE 1.2 mg/dL (0.7-1.3); EST CRCL DRUG DOSING (CG) 41.45 mL/min; POTASSIUM,K 4.1 mEq/L (3.5-5.1); PROTEIN TOTAL,TP 6.6 g/dl (6.4-8.2)
[2023-11-12 16:39] LABS: CORONAVIRUS COVID-19 NAA POSITIVE (NEGATIVE); INFLUENZA A NAA NEGATIVE (NEGATIVE); RESPIRATORY SYNCYTIAL VIR NAA NEGATIVE (NEGATIVE)
[2023-11-12 17:03] LABS: APPEARANCE,URINE CLOUDY (Clear); BILIRUBIN,URINE 1+ (Negative); COLOR,URINE YELLOW (Yellow); GLUCOSE,URINE NEGATIVE (Negative); KETONES,URINE TRACE (Negative); LEUKOCYTE ESTERASE,URINE TRACE (Negative); NITRITE,URINE NEGATIVE (Negative); OCCULT BLOOD,URINE 1+ (Negative); PH,URINE 7.5 (5.0-8.0); PROTEIN,URINE 2+ (Negative)
[2023-11-12 17:16] LABS: AMORPHOUS SEDIMENT,URINE FEW /hpf (NOT SEEN); BACTERIA,URINE MODERATE /hpf (FEW); MUCUS,URINE MANY /hpf (FEW); RBC,URINE 50-75 /hpf (0-5); SQUAMOUS EPITHELIAL CELLS,UR 0-5 /hpf (0-5)
[2023-11-12 19:29] VITALS: BP 129/53; PULSE 61
== END 2023-11-12 19:27 | disposition home or self-care (01) ==
LOC: JD.ED 14:42
DX: U07.1 COVID-19 (principal); R41.82 Altered mental status, unspecified; I10 Essential (primary) hypertension; E78.00 Pure hypercholesterolemia, unspecified; I25.10 Atherosclerotic heart disease of native coronary artery without angina pectoris; J44.9 Chronic obstructive pulmonary disease, unspecified; K21.9 Gastro-esophageal reflux disease without esophagitis; Z95.5 Presence of coronary angioplasty implant and graft; Z88.8 Allergy status to other drugs, medicaments and biological substances; Z79.82 Long term (current) use of aspirin; Z79.899 Other long term (current) drug therapy
CPT/HCPCS: 0241U; 36415; 71046; 80053; 81001; 85025; 99285

== ENCOUNTER 2025-07-28 16:19 | Inpatient (IN) | payer MEDICARE, OTHER ==
[2025-07-28] MEDS: Sodium Chloride 0.9% 10 ML Syringe FLUSH PRN (17:42)
[2025-07-28 17:50] LABS: BASOPHILS ABSOLUTE AUTO 0.0 K/mm3 (0.0-0.2); BASOPHILS PERCENT AUTO 0.4 % (0.0-1.0); EOSINOPHILS ABSOLUTE AUTO 0.1 K/mm3 (0.0-0.4); EOSINOPHILS PERCENT AUTO 0.7 % (0.0-6.0); IMMATURE GRAN ABSOLUTE AUTO 0.02 K/mm3 (0.00-0.05); IMMATURE GRAN PERCENT AUTO 0.2 % (0.0-0.4); LYMPHOCYTES ABSOLUTE AUTO 3.8 K/mm3 (1.0-4.8); LYMPHOCYTES PERCENT AUTO 46.4 % (24.0-44.0); MEAN PLATELET VOLUME 10.2 fl (9.4-12.4); MONOCYTES ABSOLUTE AUTO 0.6 K/mm3 (0.0-0.8); MONOCYTES PERCENT AUTO 7.0 % (0.0-8.0); NEUTROPHILS ABSOLUTE AUTO 3.7 K/mm3 (1.8-7.7); NEUTROPHILS PERCENT AUTO 45.3 % (41.0-71.0); NRBC ABSOLUTE 0.00 (0.00-0.02); NRBC PERCENT 0.0 % (0.0-0.2); PLATELET COUNT,PLT 62 K/mm3 (150-400); RED BLOOD CELL COUNT 3.98 M/mm3 (4.52-5.90); WHITE BLOOD CELL COUNT,WBC 8.11 K/mm3 (3.9-11.3)
[2025-07-28 18:14] LABS: A/G RATIO 1.5 (1-2); ALANINE AMINOTRANSFERASE,ALT 22.0 U/L (16-63); ASPARTATE AMNIOTRANSFERASE,AST 22.0 U/L (15-37); BILIRUBIN TOTAL 1.2 mg/dL (0.2-1.0); BLOOD UREA NITROGEN,BUN 28.0 mg/dL (7-18); CARBON DIOXIDE,CO2 27.0 mEq/L (21-32); CHLORIDE,CL 103.0 mEq/L (98-107); CREATININE 1.5 mg/dL (0.7-1.3); EST CRCL DRUG DOSING (CG) 30.62 mL/min; ESTIMATED GFR 45.0 mL/min (>60); GLUCOSE RANDOM 95.0 mg/dL (70-99); POTASSIUM,K 4.4 mEq/L (3.5-5.1); PROTEIN TOTAL,TP 6.7 g/dl (6.4-8.2); SODIUM,NA 140.0 mEq/L (136-145); TROPONIN I HIGH SENSITIVITY 14.0 pg/mL (<=76)
[2025-07-28] MEDS: Sodium Chloride 0.9% 10 ML Syringe FLUSH ONE (18:56)
[2025-07-28] MEDS: Iopamidol 755 Mg/ML 100 ML Bottle IVPUSH ONE (18:56)
[2025-07-28 19:13] LABS: APPEARANCE,URINE CLEAR (Clear); GLUCOSE,URINE NEGATIVE (Negative); OCCULT BLOOD,URINE 1+ (Negative)
[2025-07-28 19:30] LABS: EPITHELIAL CELLS,URINE 0-5 /hpf (0-5)
[2025-07-29 05:40] LABS: BASOPHILS ABSOLUTE AUTO 0.0 K/mm3 (0.0-0.2); BASOPHILS PERCENT AUTO 0.3 % (0.0-1.0); EOSINOPHILS ABSOLUTE AUTO 0.0 K/mm3 (0.0-0.4); EOSINOPHILS PERCENT AUTO 0.4 % (0.0-6.0); IMMATURE GRAN ABSOLUTE AUTO 0.04 K/mm3 (0.00-0.05); IMMATURE GRAN PERCENT AUTO 0.4 % (0.0-0.4); LYMPHOCYTES ABSOLUTE AUTO 6.0 K/mm3 (1.0-4.8); LYMPHOCYTES PERCENT AUTO 62.6 % (24.0-44.0); MEAN PLATELET VOLUME 10.5 fl (9.4-12.4); MONOCYTES ABSOLUTE AUTO 0.7 K/mm3 (0.0-0.8); MONOCYTES PERCENT AUTO 7.5 % (0.0-8.0); NEUTROPHILS ABSOLUTE AUTO 2.8 K/mm3 (1.8-7.7); NEUTROPHILS PERCENT AUTO 28.8 % (41.0-71.0); NRBC ABSOLUTE 0.00 (0.00-0.02); NRBC PERCENT 0.0 % (0.0-0.2); PLATELET COUNT,PLT 54 K/mm3 (150-400); RED BLOOD CELL COUNT 3.51 M/mm3 (4.52-5.90); WHITE BLOOD CELL COUNT,WBC 9.64 K/mm3 (3.9-11.3)
[2025-07-29 05:46] LABS: A/G RATIO 1.3 (1-2); ALANINE AMINOTRANSFERASE,ALT 22.0 U/L (16-63); ASPARTATE AMNIOTRANSFERASE,AST 26.0 U/L (15-37); BILIRUBIN TOTAL 0.9 mg/dL (0.2-1.0); BLOOD UREA NITROGEN,BUN 28.0 mg/dL (7-18); CARBON DIOXIDE,CO2 28.0 mEq/L (21-32); CHLORIDE,CL 103.0 mEq/L (98-107); CREATININE 1.4 mg/dL (0.7-1.3); EST CRCL DRUG DOSING (CG) 33.1 mL/min; ESTIMATED GFR 49.0 mL/min (>60); GLUCOSE RANDOM 78.0 mg/dL (70-99); PHOSPHORUS 3.9 mg/dL (2.6-4.7); POTASSIUM,K 4.1 mEq/L (3.5-5.1); PROTEIN TOTAL,TP 6.0 g/dl (6.4-8.2); SODIUM,NA 139.0 mEq/L (136-145)
[2025-07-29 15:42] LABS: CHOLESTEROL HDL 37.0 mg/dL (40-59); CHOLESTEROL LDL DIRECT 57.0 mg/dL (<100); CHOLESTEROL TOTAL 107.0 mg/dL (<200); CREATINE KINASE,CK 87.0 U/L (39-308); TSH 0.676 uIU/mL (0.358-3.74)
[2025-07-29 18:13] VITALS: BP 135/61; PULSE 61
== END 2025-07-29 17:30 | disposition home or self-care (01) | DRG 149 ==
LOC: JD.ED 16:19 → JD.MS 21:52
PROVIDERS: ADMIT Family Medicine; ATTEND Family Medicine
DX: R42 Dizziness and giddiness (principal); R53.1 Weakness; H54.7 Unspecified visual loss; I25.10 Atherosclerotic heart disease of native coronary artery without angina pectoris; E78.00 Pure hypercholesterolemia, unspecified; I10 Essential (primary) hypertension; J44.9 Chronic obstructive pulmonary disease, unspecified; I65.01 Occlusion and stenosis of right vertebral artery; K21.9 Gastro-esophageal reflux disease without esophagitis; N40.0 Benign prostatic hyperplasia without lower urinary tract symptoms; N42.9 Disorder of prostate, unspecified; Z90.49 Acquired absence of other specified parts of digestive tract; Z98.890 Other specified postprocedural states; Z79.899 Other long term (current) drug therapy; Z95.5 Presence of coronary angioplasty implant and graft; Z98.49 Cataract extraction status, unspecified eye; Z79.82 Long term (current) use of aspirin; Z88.8 Allergy status to other drugs, medicaments and biological substances; Z87.891 Personal history of nicotine dependence; Z95.0 Presence of cardiac pacemaker
CPT/HCPCS: 36415; 70450; 70450-26; 70496; 70496-26; 70498; 70498-26; 71045; 71045-26; 80053; 80061; 81001; 82550; 83735; 84100; 84443; 84484; 85025; 93005; 96360; 97112-GP; 97116-GP; 97161-GP; 99285-25; A9270-GY; J7030; Q9967